=== PATIENT | female | born 1995 | race Caucasian/White ===

== ENCOUNTER 2018-11-18 16:46 | Emergency (ER) | payer BC ==
[2018-11-18 17:19] VITALS: RESP 18; TEMP 98.2
[2018-11-18] MEDS ORDERED: KETOROLAC 60 MG/2 ML VIAL IM STA (19:20)
--- NOTE | 2018-11-18 19:24 | ED ---
Chest Pain HPI - General Chief Complaint: Chest Pain Stated Complaint: chest pain Time Seen by Provider: 11/18/18 19:01 Source: patient Mode of arrival: ambulatory Limitations: no limitations - History of Present Illness Initial Comments: This 23-year-old white female presents with a complaint of some pain in her chest. She states that this is primarily into the midsternal region. It is been present over the last 2 days. She denies any shortness of breath. She denies any injuries. It is worse with palpation. She states that it is slightly worse at the end of a deep inspiration. She further relates that she had some cramping in her right anterior proximal leg couple of days ago. She states that she has been on control pills and is worried about a blood clot. She denies any calf pain or swelling. She states that she is not very active overall. She denies any cough or fevers. She denies any known previous lung or cardiac problems. There's been no history of any blood clots. No other complaints or modifying factors. - Related Data Home Medications Medication Instructions Recorded Confirmed Norethindrone-E.estradiol-Iron 1 tab PO DAILY 11/18/18 11/18/18 [Junel Fe 1 mg-20 Mcg Tablet] Allergies Allergy/AdvReac Type Severity Reaction Status Date / Time amoxicillin Allergy Rash/Hives Verified 11/18/18 19:34 lamotrigine [From Lamictal] AdvReac Confusion Verified 11/18/18 19:34 progesterone AdvReac Nausea & Verified 11/18/18 19:34 Vomiting Review of Systems ROS Statement: Those systems with pertinent positive or pertinent negative responses have been documented in the HPI. ROS Other: All systems not noted in ROS Statement are negative. Past Medical History Additional Past Medical History / Comment(s): endometriosis, ovarian cysts History of Any Multi-Drug Resistant Organisms: None Reported Past Surgical History: Appendectomy, Ear Surgery, Tonsillectomy Additional Past Surgical History / Comment(s): ear tubes Past Psychological History: No Psychological Hx Reported Smoking Status: Never smoker Past Alcohol Use History: None Reported Past Drug Use History: None Reported General Exam - General Exam Comments Initial Comments: GENERAL: The patient is well nourished and well hydrated. VITAL SIGNS: Heart rate, blood pressure, respiratory rate reviewed as recorded in nurse's notes. EYES: Pupils are round and reactive. Extraocular movements are intact. No conjunctival / lid redness or swelling. ENT: No external evidence of injury, swelling, or ecchymosis. Airway is patent. Throat is clear. NECK: Nontender. No swelling or evidence of injury. No subcutaneous emphysema. Trachea is midline. No thyroid mass. HEART: Regular rate and rhythm. Good peripheral pulses. LUNGS/CHEST: Breath sounds clear and equal bilaterally. No rales, rhonchi, or wheezes. No ecchymosis, subcutaneous emphysema. There is some mild tenderness upon palpation of the anterior chest wall. ABDOMEN: Abdomen soft without tenderness. No palpable masses or organomegaly. No peritoneal signs. No abdominal wall swelling or ecchymosis. EXTREMITIES: No extremity tenderness currently. Normal muscle tone and function. No thoracolumbar tenderness. NEUROLOGIC: Sensation is grossly intact. Cranial nerve exam reveals face is symmetrical, tongue is midline, speech is clear. SKIN: No abrasions or ecchymosis is noted. No induration or masses noted. PSYCHIATRIC: Alert and oriented. Appropriate behavior and judgment. Limitations: no limitations Course Vital Signs 11/18/18 17:17 Temperature 98.2 F Pulse Rate 83 Respiratory 18 Rate Blood Pressure 132/84 O2 Sat by Pulse 99 Oximetry Chest Pain [facility] The patient was seen and examined. All diagnostics are reviewed. The patient did receive 30 of Toradol intravenously with some moderate relief of the pain. The EKG shows a normal sinus rhythm at a rate of 80. There is no acute ST-T wave changes identified. The NH interval is 152, QRS duration is 82, and the QTC intervals 419. The patient had a chest x-ray which did not show any acute abnormalities. The laboratory including a d-dimer is negative for any evidence of pulmonary embolism. Overall, it is felt as though she likely does have some musculoskeletal chest pain. That she is very tender upon palpation of her chest wall anteriorly. It is felt as though she is stable for discharge home and leaves in no distress. Disposition Clinical Impression: Chest wall pain Disposition: HOME SELF-CARE Condition: Good Additional Instructions: Please take tylenol and/or motrin if needed for pain. Is patient prescribed a controlled substance at d/c from ED?: No Referrals: Jesenia Madison MD [Primary Care Provider] - 1-2 days Time of Disposition: 20:50
[2018-11-18 19:58] LABS: Basophils # (A) 0.1 k/uL (0-0.2); Basophils % (A) 1 %; Eosinophils # (A) 0.1 k/uL (0-0.7); Eosinophils % (A) 2 %; HCT 37.5 % (34.0-46.0); HGB 12.7 gm/dL (11.4-16.0); Lymphocytes # (A) 2.4 k/uL (1.0-4.8); Lymphocytes % (A) 29 %; MCHC 33.8 g/dL (31.0-37.0); MCV 79.9 fL (80.0-100.0); Monocytes # (A) 0.4 k/uL (0-1.0); Monocytes % (A) 5 %; Neutrophils # (A) 5.1 k/uL (1.3-7.7); Neutrophils % (A) 63 %; Platelet Count 321 k/uL (150-450); RBC 4.69 m/uL (3.80-5.40); RDW 12.4 % (11.5-15.5); WBC 8.1 k/uL (3.8-10.6)
[2018-11-18] MEDS ORDERED: KETOROLAC 30 MG/ML 1 ML VIAL IVP STA (20:07)
[2018-11-18 20:27] LABS: ALT 33 U/L (9-52); AST 26 U/L (14-36); Albumin 4.3 g/dL (3.5-5.0); Alkaline Phosphatase 57 U/L (38-126); Anion Gap 7 mmol/L; Blood Urea Nitrogen 8 mg/dL (7-17); Calcium 9.8 mg/dL (8.4-10.2); Carbon Dioxide 25 mmol/L (22-30); Chloride 106 mmol/L (98-107); Glucose 129 mg/dL (74-99); Potassium 4.4 mmol/L (3.5-5.1); Sodium 138 mmol/L (137-145); Total Bilirubin 0.3 mg/dL (0.2-1.3); Total Protein 7.4 g/dL (6.3-8.2)
--- NOTE | 2018-11-18 20:37 | XR ---
EXAMINATION: XR chest 2V DATE AND TIME: 11/18/2018 8:31 PM CLINICAL INDICATION: PH[facility]; Chest Pain TECHNIQUE: Departmental protocol COMPARISON: None FINDINGS: The overlying soft tissues are prominent. Lungs are clear. The pleural spaces are negative. The cardiac silhouette is not enlarged. The remainder of the mediastinal silhouette is unremarkable. The skeletal structures and soft tissues are negative for acute findings. IMPRESSION: NO ACUTE PROCESS.
--- NOTE | 2018-11-18 20:52 | ED ---
Medical Decision Making - Lab Data Result diagrams: 11/18/18 19:25 11/18/18 19:25 Lab Results 11/18/18 11/18/18 11/18/18 Range/Units 19:25 19:25 19:25 WBC 8.1 (3.8-10.6) k/uL RBC 4.69 (3.80-5.40) m/uL Hgb 12.7 (11.4-16.0) gm/dL Hct 37.5 (34.0-46.0) % MCV 79.9 L (80.0-100.0) fL MCH 27.0 (25.0-35.0) pg MCHC 33.8 (31.0-37.0) g/dL RDW 12.4 (11.5-15.5) % Plt Count 321 (150-450) k/uL Neutrophils % 63 % Lymphocytes % 29 % Monocytes % 5 % Eosinophils % 2 % Basophils % 1 % Neutrophils # 5.1 (1.3-7.7) k/uL Lymphocytes # 2.4 (1.0-4.8) k/uL Monocytes # 0.4 (0-1.0) k/uL Eosinophils # 0.1 (0-0.7) k/uL Basophils # 0.1 (0-0.2) k/uL D-Dimer 0.25 (<0.60) mg/L FEU Sodium 138 (137-145) mmol/L Potassium 4.4 (3.5-5.1) mmol/L Chloride 106 (98-107) mmol/L Carbon Dioxide 25 (22-30) mmol/L Anion Gap 7 mmol/L BUN 8 (7-17) mg/dL Creatinine 0.69 (0.52-1.04) mg/dL Est GFR (CKD-EPI)AfAm >90 (>60 ml/min/1.73 sqM) Est GFR (CKD-EPI)NonAf >90 (>60 ml/min/1.73 sqM) Glucose 129 H (74-99) mg/dL Calcium 9.8 (8.4-10.2) mg/dL Total Bilirubin 0.3 (0.2-1.3) mg/dL AST 26 (14-36) U/L ALT 33 (9-52) U/L Alkaline Phosphatase 57 (38-126) U/L Total Protein 7.4 (6.3-8.2) g/dL Albumin 4.3 (3.5-5.0) g/dL Urine HCG, Qual (Not Detectd) 11/18/18 Range/Units 19:55 WBC (3.8-10.6) k/uL RBC (3.80-5.40) m/uL Hgb (11.4-16.0) gm/dL Hct (34.0-46.0) % MCV (80.0-100.0) fL MCH (25.0-35.0) pg MCHC (31.0-37.0) g/dL RDW (11.5-15.5) % Plt Count (150-450) k/uL Neutrophils % % Lymphocytes % % Monocytes % % Eosinophils % % Basophils % % Neutrophils # (1.3-7.7) k/uL Lymphocytes # (1.0-4.8) k/uL Monocytes # (0-1.0) k/uL Eosinophils # (0-0.7) k/uL Basophils # (0-0.2) k/uL D-Dimer (<0.60) mg/L FEU Sodium (137-145) mmol/L Potassium (3.5-5.1) mmol/L Chloride (98-107) mmol/L Carbon Dioxide (22-30) mmol/L Anion Gap mmol/L BUN (7-17) mg/dL Creatinine (0.52-1.04) mg/dL Est GFR (CKD-EPI)AfAm (>60 ml/min/1.73 sqM) Est GFR (CKD-EPI)NonAf (>60 ml/min/1.73 sqM) Glucose (74-99) mg/dL Calcium (8.4-10.2) mg/dL Total Bilirubin (0.2-1.3) mg/dL AST (14-36) U/L ALT (9-52) U/L Alkaline Phosphatase (38-126) U/L Total Protein (6.3-8.2) g/dL Albumin (3.5-5.0) g/dL Urine HCG, Qual Not Detected (Not Detectd) Disposition Clinical Impression: Chest wall pain Disposition: HOME SELF-CARE Condition: Good Instructions (If sedation given, give patient instructions): Chest Wall Pain ( ED) Additional Instructions: Please take tylenol and/or motrin if needed for pain. Is patient prescribed a controlled substance at d/c from ED?: No Referrals: Jesenia Madison MD [Primary Care Provider] - 1-2 days Time of Disposition: 20:51
[2018-11-18 21:15] VITALS: BP 110/53; PULSE 65
== END 2018-11-18 21:04 | disposition home or self-care (01) ==
LOC: EC 16:46
DX: R07.89 Other chest pain (principal); Z53.8 Procedure and treatment not carried out for other reasons; Z79.3 Long term (current) use of hormonal contraceptives; Z88.0 Allergy status to penicillin; Z88.8 Allergy status to other drugs, medicaments and biological substances
CPT/HCPCS: 36415; 93005; 85379; 80053; 85025; 81025; 71046; 99285; 96374; J1885

== ENCOUNTER 2021-09-30 11:53 | Emergency (ER) | payer BC ==
[2021-09-30 12:09] VITALS: TEMP 98.3
--- NOTE | 2021-09-30 12:52 | ED ---
General Adult HPI - General Chief complaint: Vaginal Bleeding Stated complaint: 6 wks preg/Bleeding Time Seen by Provider: 09/30/21 12:28 Source: patient, RN notes reviewed Mode of arrival: ambulatory - History of Present Illness Initial comments: 26-year-old female presents to the emergency Department with concerns about vaginal bleeding and early . Patient states this is her first and is high risk due to a history of endometriosis. States she spoke with her GREEN HIDE INSPECTOR this morning and they were willing to see her in the office on Saturday, however patient has exams and is very concerned about this bleeding therefore she came to the emergency department. Describes the bleeding as pinkish-brown and the consistency of a vaginal discharge. States she had a transvaginal ultrasound for scan on Saturday and this is the first episode of bleeding since. Denies any clots or bright red bleeding; no pain or cramping; denies dysuria. Last menstrual period on 08/16/2021. - Related Data Home Medications Medication Instructions Recorded Confirmed Pnv,Calcium 72/Iron/Folic Acid 1 tab PO DAILY 09/30/21 09/30/21 [ Plus Tablet] Allergies Allergy/AdvReac Type Severity Reaction Status Date / Time amoxicillin Allergy Rash/Hives Verified 09/30/21 14:12 lamotrigine [From Lamictal] AdvReac Confusion Verified 09/30/21 14:12 progesterone AdvReac Nausea & Verified 09/30/21 14:12 Vomiting Review of Systems ROS Statement: Those systems with pertinent positive or pertinent negative responses have been documented in the HPI. ROS Other: All systems not noted in ROS Statement are negative. Past Medical History Additional Past Medical History / Comment(s): endometriosis, ovarian cysts History of Any Multi-Drug Resistant Organisms: None Reported Past Surgical History: Appendectomy, Ear Surgery, Tonsillectomy Additional Past Surgical History / Comment(s): ear tubes Past Psychological History: Bipolar Past Alcohol Use History: None Reported Past Drug Use History: None Reported General Exam Limitations: no limitations (Well-developed, well-nourished female in no acute distress. Initial temperature 98.3, pulse 79, respirations 18, blood pressure 109/75, pulse ox 100% on room air.) General appearance: alert, in no apparent distress ENT exam: Present: normal exam, normal oropharynx, mucous membranes moist Respiratory exam: Present: normal lung sounds bilaterally. Absent: respiratory distress, wheezes, rales, rhonchi, stridor Cardiovascular Exam: Present: regular rate, normal rhythm, normal heart sounds. Absent: systolic murmur, diastolic murmur, rubs, gallop, clicks GI/Abdominal exam: Present: soft, normal bowel sounds. Absent: distended, tenderness, guarding, rebound, rigid External exam: Present: normal external exam Speculum exam: Present: vaginal discharge (Scant amount of brownish pink vaginal discharge observed), other (Cervical os appears closed.) Neurological exam: Present: alert, oriented X3, CN II-XII intact Psychiatric exam: Present: normal affect, normal mood Skin exam: Present: warm, dry, intact, normal color. Absent: rash Course Vital Signs 09/30/21 09/30/21 12:05 15:32 Temperature 98.3 F Pulse Rate 79 78 Respiratory 18 17 Rate Blood Pressure 109/75 111/64 O2 Sat by Pulse 100 100 Oximetry Medical Decision Making - Medical Decision Making 26-year-old female with a history of endometriosis presents to the emergency department for evaluation of vaginal bleeding during early . She is . LMP 08/16/2021. Patient sees a highway safety engineer provider due to her history of endometriosis. She contacted the on-call provider after her bleeding began today and they are willing to see her in the office on Saturday. However patient states she has final exams on Saturday and is unable to wait until then therefore came to the emergency department for evaluation. Upon exam, patient is well- appearing and in no acute distress. Abdomen is soft and nontender. No cramping. Patient does have scant amount of brownish pink vaginal discharge. Cervical os is closed. Laboratory studies were obtained and are unremarkable. HCG is elevated as expected. Ultrasound confirms presence of early single intrauterine . Patient was informed of these findings. Instructed to refrain from sexual intercourse and exertional activity until she is seen by her OB provider. Return parameters were discussed in detail. Patient verbalizes understanding and agrees with this plan. - Lab Data Result diagrams: 09/30/21 13:09/30/21 13: Lab Results 09/30/21 09/30/21 09/30/21 Range/Units 13: 13: 13: WBC 5.8 (3.8-10.6) k/uL RBC 4.40 (3.80-5.40) m/uL Hgb 13.0 (11.4-16.0) gm/dL Hct 38.0 (34.0-46.0) % MCV 86.4 (80.0-100.0) fL MCH 29.5 (25.0-35.0) pg MCHC 34.2 (31.0-37.0) g/dL RDW 12.2 (11.5-15.5) % Plt Count 271 (150-450) k/uL MPV 6.7 Neutrophils % 64 % Lymphocytes % 27 % Monocytes % 6 % Eosinophils % 1 % Basophils % 1 % Neutrophils # 3.7 (1.3-7.7) k/uL Lymphocytes # 1.6 (1.0-4.8) k/uL Monocytes # 0.4 (0-1.0) k/uL Eosinophils # 0.1 (0-0.7) k/uL Basophils # 0.1 (0-0.2) k/uL Sodium 137 (137-145) mmol/L Potassium 4.4 (3.5-5.1) mmol/L Chloride 104 (98-107) mmol/L Carbon Dioxide 24 (22-30) mmol/L Anion Gap 9 mmol/L BUN 9 (7-17) mg/dL Creatinine 0.66 (0.52-1.04) mg/dL Est GFR (CKD-EPI)AfAm >90 (>60 ml/min/1.73 sqM) Est GFR (CKD-EPI)NonAf >90 (>60 ml/min/1.73 sqM) Glucose 88 (74-99) mg/dL Calcium 9.1 (8.4-10.2) mg/dL HCG, Quant 77787.7 mIU/mL Urine Color Yellow Urine Appearance Clear (Clear) Urine pH 6.5 (5.0-8.0) Ur Specific [place] 1.020 (1.001-1.035) Urine Protein Negative (Negative) Urine Glucose (UA) Negative (Negative) Urine Ketones Negative (Negative) Urine Blood Negative (Negative) Urine Nitrite Negative (Negative) Urine Bilirubin Negative (Negative) Urine Urobilinogen <2.0 (<2.0) mg/dL Ur Leukocyte Esterase Negative (Negative) Blood Type Blood Type Recheck Bld Type Recheck Status 09/30/21 Range/Units 13:01 WBC (3.8-10.6) k/uL RBC (3.80-5.40) m/uL Hgb (11.4-16.0) gm/dL Hct (34.0-46.0) % MCV (80.0-100.0) fL MCH (25.0-35.0) pg MCHC (31.0-37.0) g/dL RDW (11.5-15.5) % Plt Count (150-450) k/uL MPV Neutrophils % % Lymphocytes % % Monocytes % % Eosinophils % % Basophils % % Neutrophils # (1.3-7.7) k/uL Lymphocytes # (1.0-4.8) k/uL Monocytes # (0-1.0) k/uL Eosinophils # (0-0.7) k/uL Basophils # (0-0.2) k/uL Sodium (137-145) mmol/L Potassium (3.5-5.1) mmol/L Chloride (98-107) mmol/L Carbon Dioxide (22-30) mmol/L Anion Gap mmol/L BUN (7-17) mg/dL Creatinine (0.52-1.04) mg/dL Est GFR (CKD-EPI)AfAm (>60 ml/min/1.73 sqM) Est GFR (CKD-EPI)NonAf (>60 ml/min/1.73 sqM) Glucose (74-99) mg/dL Calcium (8.4-10.2) mg/dL HCG, Quant mIU/mL Urine Color Urine Appearance (Clear) Urine pH (5.0-8.0) Ur Specific [place] (1.001-1.035) Urine Protein (Negative) Urine Glucose (UA) (Negative) Urine Ketones (Negative) Urine Blood (Negative) Urine Nitrite (Negative) Urine Bilirubin (Negative) Urine Urobilinogen (<2.0) mg/dL Ur Leukocyte Esterase (Negative) Blood Type O Positive Blood Type Recheck No Previous Record Bld Type Recheck Status [facility] ONLY - Radiology Data Radiology results: report reviewed, image reviewed ultrasound was obtained. Report was reviewed in its entirety. Impression per Dr. Garrison is early single intrauterine . heart rate is not detected likely secondary to early gestational age. No definite abnormality. Disposition Clinical Impression: Threatened , Bleeding in early Disposition: HOME SELF-CARE Condition: Stable Instructions (If sedation given, give patient instructions): Threatened Miscarriage (ED) Additional Instructions: Call your OB to schedule a follow-up appointment on Saturday. hCG 14,670. Avoid sexual intercourse and exertional activity. Return to the emergency department with any new, worsening, or concerning symptoms. Is patient prescribed a controlled substance at d/c from ED?: No Referrals: Jesenia Madison MD [Primary Care Provider] - 1-2 days Time of Disposition: 15:22
[2021-09-30 13:16] LABS: Basophils # (A) 0.1 k/uL (0-0.2); Basophils % (A) 1 %; Eosinophils # (A) 0.1 k/uL (0-0.7); Eosinophils % (A) 1 %; Lymphocytes # (A) 1.6 k/uL (1.0-4.8); Lymphocytes % (A) 27 %; MCH 29.5 pg (25.0-35.0); MCHC 34.2 g/dL (31.0-37.0); MCV 86.4 fL (80.0-100.0); Mean Platelet Volume 6.7; Monocytes # (A) 0.4 k/uL (0-1.0); Monocytes % (A) 6 %; Neutrophils # (A) 3.7 k/uL (1.3-7.7); Neutrophils % (A) 64 %; Platelet Count 271 k/uL (150-450); RDW 12.2 % (11.5-15.5); WBC 5.8 k/uL (3.8-10.6)
[2021-09-30 13:22] LABS: Appearance,Urine Clear (Clear); Bilirubin,Urine Negative (Negative); Blood,Urine Negative (Negative); Color,Urine Yellow; Glucose,Urine (UA) Negative (Negative); Ketones,Urine Negative (Negative); Leukocyte Esterase,Urine Negative (Negative); Nitrite,Urine Negative (Negative); PH, Urine 6.5 (5.0-8.0); Protein,Urine Negative (Negative); Urobilinogen,Urine <2.0 mg/dL (<2.0)
[2021-09-30 13:37] LABS: African American GFR (CKD) >90 (>60 ml/min/1.73 sqM); Anion Gap 9 mmol/L; Blood Urea Nitrogen 9 mg/dL (7-17); Calcium 9.1 mg/dL (8.4-10.2); Carbon Dioxide 24 mmol/L (22-30); Chloride 104 mmol/L (98-107); Glucose 88 mg/dL (74-99); Non-African American GFR(CKD) >90 (>60 ml/min/1.73 sqM); Potassium 4.4 mmol/L (3.5-5.1); Sodium 137 mmol/L (137-145)
--- NOTE | 2021-09-30 14:13 | US ---
EXAMINATION TYPE: Transabdominal OB US 1st trimester DATE OF EXAM: 09/30/2021 1:43 PM COMPARISON: NONE CLINICAL HISTORY: LMP 08/16/21; vaginal bleeding in . EC patient with vaginal spotting noted today after intercourse; ; surgery for endometriosis April 2021. Patient stated had early pregnan cy US this Saturday at [facility] for High Risk due to endometriosis diagnosis: gestational sa c and yolk sac was seen per patient. EXAM PERFORMED: Transabdominal (TA) EXAM MEASUREMENTS: GESTATIONAL AGE / DATING Physician Established: (6 weeks/3 days) EDC: 05/23/2022 Dates by LMP: (6 weeks/3 days) EDC: 05/23/2022 Dates by First Scan: this is first scan here at [facility]. Dates by Current Scan for: ( 6 weeks/0 days) EDC: 05/26/2022 MATERNAL ANATOMY Uterus: 8.5 x 5.6 x 4.8cm Right Ovary: 3.0 x 1.9 x 1.7cm Left Ovary: 2.8 x 2.2 x 2.3cm Post CDS / Adnexa: wnl Presence of free fluid: no Presence of corpus luteal cyst: in left ovary = 1.3 x 1.7 x 1.5cm Presence of subchorionic bleed: no GESTATION / SURVEY CRL: 0.37cm (6 weeks/0 days) Yolk Sac (normal less than 6mm): 3.4mm Heart Rate: early IUP and no color flow is noted in pole yet as CRL is less than average CRL ne eded for cardiac activity (0.5cm CRL) IUP: early single IUP Date of LMP: 08/16/2021 Beta HcG (if available): Not assessed today Early gestation with single IUP noted with gestational sac in good location at upper uterus; presence of yolk sac and early pole noted within gestational sac. IMPRESSION: Early single intrauterine . heart rate is not detected likely secondary to early gesta tional age. No definite abnormality.
[2021-09-30 14:26] LABS: HCG,Quantitative Serum 14670.7 mIU/mL
[2021-09-30 15:37] VITALS: BP 111/64; PULSE 78; RESP 17
== END 2021-09-30 15:37 | disposition home or self-care (01) ==
LOC: EC 11:53
DX: O20.0 Threatened abortion (principal); F31.9 Bipolar disorder, unspecified; Z3A.01 Less than 8 weeks gestation of pregnancy; Z90.49 Acquired absence of other specified parts of digestive tract
CPT/HCPCS: 36415; 76801; 80048; 81003; 84702; 85025; 86900; 86901; 99284

== ENCOUNTER 2022-05-21 10:35 | Emergency (ER) | payer BC ==
[2022-05-21 10:40] VITALS: TEMP 97.7
[2022-05-21] MEDS ORDERED: KETOROLAC 15 MG/ML 1 ML VIAL IVP STA (10:52)
[2022-05-21] MEDS ORDERED: SODIUM CHLORIDE 0.9% 1,000 ML IV STA (10:52)
[2022-05-21] MEDS ORDERED: ONDANSETRON ODT 4 MG TAB PO STA (10:52)
[2022-05-21 11:12] LABS: Basophils % (A) 0 %; Eosinophils # (A) 0.2 k/uL (0-0.7); Eosinophils % (A) 2 %; HCT 34.3 % (34.0-46.0); HGB 11.3 gm/dL (11.4-16.0); Lymphocytes # (A) 1.2 k/uL (1.0-4.8); Lymphocytes % (A) 13 %; MCH 27.3 pg (25.0-35.0); MCHC 32.9 g/dL (31.0-37.0); MCV 82.9 fL (80.0-100.0); Mean Platelet Volume 8.9; Monocytes # (A) 0.4 k/uL (0-1.0); Monocytes % (A) 5 %; Neutrophils # (A) 7.3 k/uL (1.3-7.7); Neutrophils % (A) 79 %; Platelet Count 208 k/uL (150-450); RBC 4.13 m/uL (3.80-5.40); RDW 14.5 % (11.5-15.5); WBC 9.1 k/uL (3.8-10.6)
--- NOTE | 2022-05-21 11:15 | ED ---
Back Pain HPI - General Chief Complaint: Back Pain/Injury Stated Complaint: lower back pain Time Seen by Provider: 05/21/22 10:40 Source: patient Limitations: no limitations - History of Present Illness Initial Comments: Patient is a 26-year-old female presenting with chief complaint of left flank pain. Patient gave via vaginal delivery 3 days ago on 05/18, this was her first delivery. Her OB is Dr. Jacques. Patient states that last night she developed left-sided flank pain, she states when she woke up this morning she had some nausea due to the pain. She denies any fever, chills, vomiting, palpitations, weakness, chest pain, shortness of breath. She denies any heavy vaginal bleeding or malodorous/foul vaginal discharge. She denies any upper abdominal pain. - Related Data Home Medications Medication Instructions Recorded Confirmed Vit No.180/Iron/Folic 1 tab PO DAILY 09/30/21 09/30/21 [ Plus Tablet] Allergies Allergy/AdvReac Type Severity Reaction Status Date / Time amoxicillin Allergy Rash/Hives Verified 05/21/22 10:39 lamotrigine [From Lamictal] AdvReac Confusion Verified 05/21/22 10:39 progesterone AdvReac Nausea & Verified 05/21/22 10:39 Vomiting Review of Systems ROS Statement: Those systems with pertinent positive or pertinent negative responses have been documented in the HPI. ROS Other: All systems not noted in ROS Statement are negative. Past Medical History Additional Past Medical History / Comment(s): endometriosis, ovarian cysts, History of Any Multi-Drug Resistant Organisms: None Reported Past Surgical History: Appendectomy, Ear Surgery, Tonsillectomy Additional Past Surgical History / Comment(s): ear tubes Past Psychological History: Bipolar Smoking Status: Never smoker Past Alcohol Use History: None Reported Past Drug Use History: None Reported General Exam Limitations: no limitations General appearance: alert, in no apparent distress Head exam: Present: atraumatic, normocephalic, normal inspection Eye exam: Present: normal appearance, EOMI. Absent: scleral icterus, periorbital swelling Neck exam: Present: normal inspection Respiratory exam: Present: normal lung sounds bilaterally. Absent: respiratory distress, wheezes, rales, rhonchi, stridor Cardiovascular Exam: Present: regular rate, normal rhythm, normal heart sounds. Absent: systolic murmur, diastolic murmur, rubs, gallop, clicks GI/Abdominal exam: Present: soft. Absent: distended, tenderness, guarding, rebound, rigid Back exam: Present: normal inspection, full ROM, paraspinal tenderness. Absent: CVA tenderness (R), CVA tenderness (L), vertebral tenderness Neurological exam: Present: alert, oriented X3, CN II-XII intact Psychiatric exam: Present: normal affect, normal mood Skin exam: Present: warm, dry, intact, normal color. Absent: rash Course Vital Signs 05/21/22 05/21/22 05/21/22 10:37 12:02 12:56 Temperature 97.7 F Pulse Rate 77 72 74 Respiratory 20 18 18 Rate Blood Pressure 156/94 122/72 132/65 O2 Sat by Pulse 98 98 99 Oximetry Blood pressure taken in triage was taken on her forearm, I rechecked this blood pressure on my examination, 122/72 taken on the left upper arm. Medical Decision Making - Medical Decision Making Patient is a 26-year-old female presenting with chief complaint of left flank pain. Pain started last night. Patient gave vaginally on Saturday, 3 days ago. She denies any heavy vaginal bleeding, foul vaginal discharge, fever, chills. Patient is afebrile. On examination there is no CVA tenderness, some left-sided paraspinal muscle tenderness on palpation, patient reports change in pain with different positions. No leukocytosis. Urine shows no signs of infection. Ultrasound is shows no evidence of obstructive uropathy. Likely mechanical back pain. Patient is educated on supportive treatment. Instructed to follow-up with her PCP and PHOTOGRAPH RETOUCHER. Report back to ER if any new or worsening symptoms. Discussed return parameters answered all questions. Patient conveyed verbal understanding and agreed to the plan. I discussed this case with my attending Dr. Hernandez. - Lab Data Result diagrams: 05/21/22 11:05 05/21/22 11:05 Lab Results 05/21/22 05/21/22 05/21/22 Range/Units 11:05 11:05 11:05 WBC 9.1 (3.8-10.6) k/uL RBC 4.13 (3.80-5.40) m/uL Hgb 11.3 L (11.4-16.0) gm/dL Hct 34.3 (34.0-46.0) % MCV 82.9 (80.0-100.0) fL MCH 27.3 (25.0-35.0) pg MCHC 32.9 (31.0-37.0) g/dL RDW 14.5 (11.5-15.5) % Plt Count 208 (150-450) k/uL MPV 8.9 Neutrophils % 79 % Lymphocytes % 13 % Monocytes % 5 % Eosinophils % 2 % Basophils % 0 % Neutrophils # 7.3 (1.3-7.7) k/uL Lymphocytes # 1.2 (1.0-4.8) k/uL Monocytes # 0.4 (0-1.0) k/uL Eosinophils # 0.2 (0-0.7) k/uL Basophils # 0.0 (0-0.2) k/uL Sodium 138 (137-145) mmol/L Potassium 4.2 (3.5-5.1) mmol/L Chloride 109 H (98-107) mmol/L Carbon Dioxide 23 (22-30) mmol/L Anion Gap 6 mmol/L BUN 5 L (7-17) mg/dL Creatinine 0.63 (0.52-1.04) mg/dL Est GFR (CKD-EPI)AfAm >90 (>60 ml/min/1.73 sqM) Est GFR (CKD-EPI)NonAf >90 (>60 ml/min/1.73 sqM) Glucose 103 H (74-99) mg/dL Plasma Lactic Acid Nabil 0.6 L (0.7-2.0) mmol/L Calcium 8.2 L (8.4-10.2) mg/dL Total Bilirubin 0.1 L (0.2-1.3) mg/dL AST 36 (14-36) U/L ALT 18 (4-34) U/L Alkaline Phosphatase 160 H (38-126) U/L Total Protein 5.8 L (6.3-8.2) g/dL Albumin 3.0 L (3.5-5.0) g/dL Urine Color Urine Appearance (Clear) Urine pH (5.0-8.0) Ur Specific [place] (1.001-1.035) Urine Protein (Negative) Urine Glucose (UA) (Negative) Urine Ketones (Negative) Urine Blood (Negative) Urine Nitrite (Negative) Urine Bilirubin (Negative) Urine Urobilinogen (<2.0) mg/dL Ur Leukocyte Esterase (Negative) 05/21/22 Range/Units 11:45 WBC (3.8-10.6) k/uL RBC (3.80-5.40) m/uL Hgb (11.4-16.0) gm/dL Hct (34.0-46.0) % MCV (80.0-100.0) fL MCH (25.0-35.0) pg MCHC (31.0-37.0) g/dL RDW (11.5-15.5) % Plt Count (150-450) k/uL MPV Neutrophils % % Lymphocytes % % Monocytes % % Eosinophils % % Basophils % % Neutrophils # (1.3-7.7) k/uL Lymphocytes # (1.0-4.8) k/uL Monocytes # (0-1.0) k/uL Eosinophils # (0-0.7) k/uL Basophils # (0-0.2) k/uL Sodium (137-145) mmol/L Potassium (3.5-5.1) mmol/L Chloride (98-107) mmol/L Carbon Dioxide (22-30) mmol/L Anion Gap mmol/L BUN (7-17) mg/dL Creatinine (0.52-1.04) mg/dL Est GFR (CKD-EPI)AfAm (>60 ml/min/1.73 sqM) Est GFR (CKD-EPI)NonAf (>60 ml/min/1.73 sqM) Glucose (74-99) mg/dL Plasma Lactic Acid Nabil (0.7-2.0) mmol/L Calcium (8.4-10.2) mg/dL Total Bilirubin (0.2-1.3) mg/dL AST (14-36) U/L ALT (4-34) U/L Alkaline Phosphatase (38-126) U/L Total Protein (6.3-8.2) g/dL Albumin (3.5-5.0) g/dL Urine Color Yellow Urine Appearance Clear (Clear) Urine pH 7.0 (5.0-8.0) Ur Specific [place] 1.015 (1.001-1.035) Urine Protein Negative (Negative) Urine Glucose (UA) Negative (Negative) Urine Ketones Negative (Negative) Urine Blood Negative (Negative) Urine Nitrite Negative (Negative) Urine Bilirubin Negative (Negative) Urine Urobilinogen <2.0 (<2.0) mg/dL Ur Leukocyte Esterase Negative (Negative) Disposition Clinical Impression: Mechanical back pain Disposition: HOME SELF-CARE Condition: Good Instructions (If sedation given, give patient instructions): Back Pain (ED) Additional Instructions: Follow-up with your PCP and PHOTOGRAPH RETOUCHER in one to 2 days. Report back to ER if any new or worsening symptoms. Take Motrin and Tylenol as needed for pain control. Rest, and heat or ice may be helpful in alleviating symptoms. Is patient prescribed a controlled substance at d/c from ED?: No Referrals: Jesenia Madison MD [Primary Care Provider] - 1-2 days Time of Disposition: 12:47
[2022-05-21 11:23] LABS: ALT 18 U/L (4-34); AST 36 U/L (14-36); African American GFR (CKD) >90 (>60 ml/min/1.73 sqM); Alkaline Phosphatase 160 U/L (38-126); Anion Gap 6 mmol/L; Blood Urea Nitrogen 5 mg/dL (7-17); Calcium 8.2 mg/dL (8.4-10.2); Carbon Dioxide 23 mmol/L (22-30); Chloride 109 mmol/L (98-107); Glucose 103 mg/dL (74-99); Non-African American GFR(CKD) >90 (>60 ml/min/1.73 sqM); Potassium 4.2 mmol/L (3.5-5.1); Sodium 138 mmol/L (137-145); Total Bilirubin 0.1 mg/dL (0.2-1.3); Total Protein 5.8 g/dL (6.3-8.2)
[2022-05-21 12:01] LABS: Appearance,Urine Clear (Clear); Bilirubin,Urine Negative (Negative); Blood,Urine Negative (Negative); Color,Urine Yellow; Glucose,Urine (UA) Negative (Negative); Ketones,Urine Negative (Negative); Leukocyte Esterase,Urine Negative (Negative); Nitrite,Urine Negative (Negative); Protein,Urine Negative (Negative); Specific Gravity,Urine 1.015 (1.001-1.035); Urobilinogen,Urine <2.0 mg/dL (<2.0)
[2022-05-21 12:03] VITALS: RESP 18
--- NOTE | 2022-05-21 12:37 | US ---
EXAMINATION TYPE: US kidneys/renal and bladder DATE OF EXAM: 05/21/2022 COMPARISON: None available. CLINICAL HISTORY: L flank pain. Patient just recently delivered baby x 3 days ago. TECHNIQUE: Multiple grayscale color Doppler and power Doppler images of the kidneys and urinary bladd er were obtained. EXAM MEASUREMENTS: Right Kidney: 12.1 x 5.6 x 4.2 cm Left Kidney: 11.6 x 5.6 x 5.6 cm Right Kidney: No hydronephrosis or masses seen . No shadowing calculi. Left Kidney: No hydronephrosis or masses seen . No shadowing calculi. Bladder: anechoic, mildly distended Left jet seen IMPRESSION: No evidence of obstructive uropathy.
[2022-05-21 12:57] VITALS: BP 132/65; PULSE 74
== END 2022-05-21 12:57 | disposition home or self-care (01) ==
LOC: EC 10:35
DX: O90.89 Other complications of the puerperium, not elsewhere classified (principal); F31.9 Bipolar disorder, unspecified; Z88.0 Allergy status to penicillin; Z88.8 Allergy status to other drugs, medicaments and biological substances
CPT/HCPCS: 36415; 76770; 80053; 81003; 83605; 85025; 96360; 96361; 99284

== ENCOUNTER 2025-01-09 22:15 | Emergency (ER) | payer BC, OTHER ==
[2025-01-09 22:30] VITALS: TEMP 97.9
--- NOTE | 2025-01-09 23:22 | ED ---
General Adult HPI - General Chief complaint: Abdominal Pain Stated complaint: abd pain,vaginal bleeding Time Seen by Provider: 01/09/25 22:33 Source: EMS, RN notes reviewed Mode of arrival: EMS Limitations: no limitations - History of Present Illness Initial comments: 29-year-old female presents to the emergency department for evaluation of lower abdominal pain cramping. Patient states that this started around 6 PM today. She notes that it comes in waves. She states that it feels like contractions. History of endometriosis. Has had 2 surgeries for this. about 8 months ago. She admits to being on her menstrual cycle. She states that her bleeding has been heavier today. She is on Wegovy and on phentermine. - Related Data Home Medications Medication Instructions Recorded Confirmed Vit No.180/Iron/Folic 1 tab PO DAILY 09/30/21 09/30/21 [ Plus Tablet] Allergies Allergy/AdvReac Type Severity Reaction Status Date / Time amoxicillin Allergy Rash/Hives Verified 05/21/22 10:39 lamotrigine [From Lamictal] AdvReac Confusion Verified 05/21/22 10:39 progesterone AdvReac Nausea & Verified 05/21/22 10:39 Vomiting Review of Systems ROS Statement: Those systems with pertinent positive or pertinent negative responses have been documented in the HPI. ROS Other: All systems not noted in ROS Statement are negative. Past Medical History Additional Past Medical History / Comment(s): endometriosis, ovarian cysts, History of Any Multi-Drug Resistant Organisms: None Reported Past Surgical History: Appendectomy, Section, Ear Surgery, Tonsillectomy Additional Past Surgical History / Comment(s): ear tubes, may 2024 Past Psychological History: Bipolar Smoking Status: Never smoker Past Alcohol Use History: None Reported Past Drug Use History: None Reported General Exam Limitations: no limitations General appearance: alert, in no apparent distress Head exam: Present: atraumatic, normocephalic, normal inspection Eye exam: Present: normal appearance, PERRL, EOMI. Absent: scleral icterus, conjunctival injection, periorbital swelling ENT exam: Present: normal exam, mucous membranes moist Respiratory exam: Present: normal lung sounds bilaterally. Absent: respiratory distress, wheezes, rales, rhonchi, stridor Cardiovascular Exam: Present: regular rate, normal rhythm, normal heart sounds. Absent: systolic murmur, diastolic murmur, rubs, gallop, clicks GI/Abdominal exam: Present: soft, normal bowel sounds. Absent: distended, tenderness, guarding, rebound, rigid Extremities exam: Present: normal inspection, full ROM, normal capillary refill. Absent: tenderness, pedal edema, joint swelling, calf tenderness Neurological exam: Present: alert, oriented X3 Psychiatric exam: Present: normal affect, normal mood Skin exam: Present: warm, dry, intact, normal color. Absent: rash Course Vital Signs 01/09/25 01/10/25 22:25 03:28 Temperature 97.9 F Pulse Rate 96 78 Respiratory 20 16 Rate Blood Pressure 125/66 128/77 O2 Sat by Pulse 100 97 Oximetry Medical Decision Making - Medical Decision Making Was pt. sent in by a medical professional or institution ([facility], [facility], urgent care, hospital, or [facility]...) When possible be specific @ -No Did you speak to anyone other than the patient for history (EMS, parent, family, police, friend...)? What history was obtained from this source @ -No Did you review nursing and triage notes (agree or disagree)? Why? @ -I reviewed and agree with nursing and triage notes Were old charts reviewed (outside hosp., previous admission, EMS record, old EKG, old radiological studies, urgent care reports/EKG's, [facility] records)? Report findings @ -No old charts were reviewed Differential Diagnosis (chest pain, altered mental status, abdominal pain women, abdominal pain men, vaginal bleeding, weakness, fever, dyspnea, syncope, h eadache, dizziness, GI bleed, back pain, seizure, CVA, palpatations, mental health, musculoskeletal)? @ -Differential Abdominal Pain Women: Appendicitis, Cholecystitis, diverticulosis, ischemic bowel, pancreatitis, hepatitis, UTI, gastroenteritis, AAA, incarcerated hernia, bowel obstruction, constipation, inflammatory bowel, hepatitis, peptic ulcer disease, splenic infarction, perforated viscus, vulvitis, ovarian torsion, PID, kidney stone, placenta abruption, this is not meant to be an all-inclusive list EKG interpreted by me (3pts min.). @ -EKG [id number] shows sinus rhythm rate 66, FL 154, QRS 99, QT/QTc [id number] X-rays interpreted by me (1pt min.). @ -None done CT interpreted by me (1pt min.). @ -None done U/S interpreted by me (1pt. min.). @ -Transvaginal ultrasound was performed revealing 1.1 x 1 0.8 x 1.5 cm polyp or loculated fibroid within the endometrial cavity, normal Doppler flow to bilateral ovaries What testing was considered but not performed or refused? (CT, X-rays, U/S, labs)? Why? @ -None What meds were considered but not given or refused? Why? @ -None Did you discuss the management of the patient with other professionals (professionals i.e. , PA, [employer] INSTALLER, lab, RT, psych nurse, home health care social worker, corporation lawyer, teacher, air control/anti air warfare officer, case folder)? Give summary @ -No Was smoking cessation discussed for >3mins.? @ -No Was critical care preformed (if so, how long)? @ -No Were there social determinants of health that impacted care today? How? (Homelessness, low income, unemployed, alcoholism, drug addiction, transportation, low edu. Level, literacy, decrease access to med. care, long term, rehab)? @ -No Was there de-escalation of care discussed even if they declined (Discuss DNR or withdrawal of care, Hospice)? DNR status @ -No What co-morbidities impacted this encounter? (DM, HTN, Smoking, COPD, CAD, Cancer, CVA, ARF, Chemo, Hep., AIDS, mental health diagnosis, sleep apnea, morbid obesity)? @ -None Was patient admitted / discharged? Hospital course, mention meds given and route, prescriptions, significant lab abnormalities, going to OR and other pertinent info. @ -Discharge. Patient presented the emergency department for evaluation of abdominal cramping and vaginal bleeding. Laboratory studies obtainedHemoglobin 13.2, no significant leukocytosis; CMP on actionable, negative serum hCG. UA shows large blood, greater than 182 RBCs which is due to the patient's menstruation. Negative for COVID, influenza, RSV. Patient was provided fluid hydration in the emergency department. A pelvic ultrasound was obtained revealing a uterine fibroid but no acute process. Patient was provided medication for pain control in the emergency department. She is feeling better. She will be discharged home advised follow-up to her DEPENDENCY DIRECTOR. She is understanding agreeable with plan. Patient stable at time of discharge. Case discussed with Dr. Drew. Undiagnosed new problem with uncertain prognosis? @ -No Drug Therapy requiring intensive monitoring for toxicity (Heparin, Nitro, Insulin, Cardizem)? @ -No Were any procedures done? @ -No Diagnosis/symptom? @ -Uterine fibroid, abdominal pain Acute, or Chronic, or Acute on Chronic? @ -Acute Uncomplicated (without systemic symptoms) or Complicated (systemic symptoms)? @ -Uncomplicated Side effects of treatment? @ -No Exacerbation, Progression, or Severe Exacerbation? @ -No Poses a threat to life or bodily function? How? (Chest pain, [place], NH, pneumonia, PE, COPD, DKA, ARF, appy, cholecystitis, CVA, Diverticulitis, Homicidal, Suicidal, threat to staff... and all critical care pts) @ -No - Lab Data Result diagrams: 01/09/25 23:26 01/09/25 23:26 Lab Results 01/09/25 01/09/25 01/09/25 Range/Units 23:26 23:26 23:26 WBC 10.0 (3.8-10.6) k/uL RBC 4.75 (3.80-5.40) m/uL Hgb 13.2 (11.4-16.0) gm/dL Hct 39.0 (34.0-46.0) % MCV 82.2 (80.0-100.0) fL MCH 27.8 (25.0-35.0) pg MCHC 33.8 (31.0-37.0) g/dL RDW 13.2 (11.5-15.5) % Plt Count 254 (150-450) k/uL MPV 6.9 Neutrophils % 87 % Lymphocytes % 9 % Monocytes % 3 % Eosinophils % 0 % Basophils % 0 % Neutrophils # 8.7 H (1.3-7.7) k/uL Lymphocytes # 0.9 L (1.0-4.8) k/uL Monocytes # 0.3 (0-1.0) k/uL Eosinophils # 0.0 (0-0.7) k/uL Basophils # 0.0 (0-0.2) k/uL Sodium 137 (137-145) mmol/L Potassium 4.0 (3.5-5.1) mmol/L Chloride 104 (98-107) mmol/L Carbon Dioxide 21 L (22-30) mmol/L Anion Gap 12 mmol/L BUN 14 (7-17) mg/dL Creatinine 0.87 (0.52-1.04) mg/dL Est GFR (CKD-EPI)AfAm >90 (>60 ml/min/1.73 sqM) Est GFR (CKD-EPI)NonAf >90 (>60 ml/min/1.73 sqM) Glucose 102 H (74-99) mg/dL Calcium 10.3 H (8.4-10.2) mg/dL Total Bilirubin 0.6 (0.2-1.3) mg/dL AST 23 (14-36) U/L ALT 19 (4-34) U/L Alkaline Phosphatase 55 (38-126) U/L Total Protein 7.6 (6.3-8.2) g/dL Albumin 4.9 (3.5-5.0) g/dL Amylase 39 (30-110) U/L Lipase 135 (23-300) U/L HCG, Qual Not Detected Urine Color Urine Appearance (Clear) Urine pH (5.0-8.0) Ur Specific [place] (1.001-1.035) Urine Protein (Negative) Urine Glucose (UA) (Negative) Urine Ketones (Negative) Urine Blood (Negative) Urine Nitrite (Negative) Urine Bilirubin (Negative) Urine Urobilinogen (<2.0) mg/dL Ur Leukocyte Esterase (Negative) Urine RBC (0-5) /hpf Urine WBC (0-5) /hpf Ur Squamous Epith Cells (0-4) /hpf Urine Bacteria (None) /hpf Hyaline Casts (0-2) /lpf Urine Mucus (None) /hpf Urine Yeast (Budding) (None) /hpf Influenza Type A (PCR) (Not Detectd) Influenza Type B (PCR) (Not Detectd) RSV (PCR) (Not Detectd) SARS-CoV-2 (PCR) (Not Detectd) 01/10/25 01/10/25 Range/Units 00:14 01:57 WBC (3.8-10.6) k/uL RBC (3.80-5.40) m/uL Hgb (11.4-16.0) gm/dL Hct (34.0-46.0) % MCV (80.0-100.0) fL MCH (25.0-35.0) pg MCHC (31.0-37.0) g/dL RDW (11.5-15.5) % Plt Count (150-450) k/uL MPV Neutrophils % % Lymphocytes % % Monocytes % % Eosinophils % % Basophils % % Neutrophils # (1.3-7.7) k/uL Lymphocytes # (1.0-4.8) k/uL Monocytes # (0-1.0) k/uL Eosinophils # (0-0.7) k/uL Basophils # (0-0.2) k/uL Sodium (137-145) mmol/L Potassium (3.5-5.1) mmol/L Chloride (98-107) mmol/L Carbon Dioxide (22-30) mmol/L Anion Gap mmol/L BUN (7-17) mg/dL Creatinine (0.52-1.04) mg/dL Est GFR (CKD-EPI)AfAm (>60 ml/min/1.73 sqM) Est GFR (CKD-EPI)NonAf (>60 ml/min/1.73 sqM) Glucose (74-99) mg/dL Calcium (8.4-10.2) mg/dL Total Bilirubin (0.2-1.3) mg/dL AST (14-36) U/L ALT (4-34) U/L Alkaline Phosphatase (38-126) U/L Total Protein (6.3-8.2) g/dL Albumin (3.5-5.0) g/dL Amylase (30-110) U/L Lipase (23-300) U/L HCG, Qual Urine Color Red Urine Appearance Cloudy H (Clear) Urine pH 5.5 (5.0-8.0) Ur Specific [place] 1.034 (1.001-1.035) Urine Protein 1+ H (Negative) Urine Glucose (UA) Negative (Negative) Urine Ketones 2+ H (Negative) Urine Blood Large H (Negative) Urine Nitrite Negative (Negative) Urine Bilirubin Negative (Negative) Urine Urobilinogen 3.0 (<2.0) mg/dL Ur Leukocyte Esterase Negative (Negative) Urine RBC >182 H (0-5) /hpf Urine WBC 1 (0-5) /hpf Ur Squamous Epith Cells 1 (0-4) /hpf Urine Bacteria Rare H (None) /hpf Hyaline Casts 5 H (0-2) /lpf Urine Mucus Rare H (None) /hpf Urine Yeast (Budding) Few H (None) /hpf Influenza Type A (PCR) Not Detected (Not Detectd) Influenza Type B (PCR) Not Detected (Not Detectd) RSV (PCR) Not Detected (Not Detectd) SARS-CoV-2 (PCR) Not Detected (Not Detectd) Disposition Clinical Impression: Abdominal pain, Uterine fibroid Disposition: HOME SELF-CARE Condition: Stable Instructions (If sedation given, give patient instructions): Abdominal Pain (ED) Additional Instructions: Please follow up with your doctor. Return to the emergency department for new or worsening symptoms. Is patient prescribed a controlled substance at d/c from ED?: No Referrals: Jesenia Madison MD [Primary Care Provider] - 1-2 days
[2025-01-09] MEDS: SODIUM CHLORIDE 0.9% 1,000 ML IV ONE (23:35)
[2025-01-09 23:36] LABS: Basophils % (A) 0 %; Eosinophils % (A) 0 %; HGB 13.2 gm/dL (11.4-16.0); Lymphocytes # (A) 0.9 k/uL (1.0-4.8); Lymphocytes % (A) 9 %; MCH 27.8 pg (25.0-35.0); MCHC 33.8 g/dL (31.0-37.0); MCV 82.2 fL (80.0-100.0); Mean Platelet Volume 6.9; Monocytes # (A) 0.3 k/uL (0-1.0); Monocytes % (A) 3 %; Neutrophils # (A) 8.7 k/uL (1.3-7.7); Neutrophils % (A) 87 %; Platelet Count 254 k/uL (150-450); RBC 4.75 m/uL (3.80-5.40); RDW 13.2 % (11.5-15.5)
[2025-01-09 23:45] LABS: ALT 19 U/L (4-34); AST 23 U/L (14-36); African American GFR (CKD) >90 (>60 ml/min/1.73 sqM); Albumin 4.9 g/dL (3.5-5.0); Alkaline Phosphatase 55 U/L (38-126); Amylase 39 U/L (30-110); Anion Gap 12 mmol/L; Blood Urea Nitrogen 14 mg/dL (7-17); Calcium 10.3 mg/dL (8.4-10.2); Carbon Dioxide 21 mmol/L (22-30); Chloride 104 mmol/L (98-107); Glucose 102 mg/dL (74-99); Lipase 135 U/L (23-300); Non-African American GFR(CKD) >90 (>60 ml/min/1.73 sqM); Sodium 137 mmol/L (137-145); Total Bilirubin 0.6 mg/dL (0.2-1.3); Total Protein 7.6 g/dL (6.3-8.2)
[2025-01-10] MEDS: MORPHINE SULFATE 4 MG/ML SYRINGE IVP STA (00:31)
[2025-01-10 00:48] LABS: Appearance,Urine Cloudy (Clear); Bacteria,Urine Rare /hpf; Bilirubin,Urine Negative (Negative); Blood,Urine Large (Negative); Budding Yeast,Urine Few /hpf; Color,Urine Red; Glucose,Urine (UA) Negative (Negative); Hyaline Casts,Urine 5 /lpf (0-2); Ketones,Urine 2+ (Negative); Leukocyte Esterase,Urine Negative (Negative); Mucus,Urine Rare /hpf; Nitrite,Urine Negative (Negative); PH, Urine 5.5 (5.0-8.0); Protein,Urine 1+ (Negative); RBC,Urine >182 /hpf (0-5); Specific Gravity,Urine 1.034 (1.001-1.035); Squamous Epithelial Cell,Urine 1 /hpf (0-4); WBC,Urine 1 /hpf (0-5)
--- NOTE | 2025-01-10 01:34 | US ---
EXAM: US Pelvis Transabdominal and Transvaginal, Complete and US Duplex Arterial/Venous of the Pelvis, Complete CLINICAL HISTORY: US Reason: pain TECHNIQUE: Real-time complete transabdominal and transvaginal pelvic ultrasound with image documentation. Transvaginal imaging was used for better evaluation of the endometrium and adnexa. Real-time duplex ultrasound scan of the arterial and venous flow of the pelvis with color Doppler flow and spectral waveform analysis. COMPARISON: May 21, 2022 abdominal ultrasound FINDINGS: Uterus/cervix: The uterus measures 8.2 x 4.9 x 5.8 cm, 121 mL is anteverted. The myometrium is unremarkable. The endometrial stripe measures 1 cm. There is a 1.1 x 0.8 x 1.5 cm polyp or a loculated fibroid in the endometrial cavity. Right ovary: The right ovary measures 2.2 x 2.4 x 1.5 cm, 4.1 mL with normal Doppler blood flow. Left ovary: The left ovary measures 3.3 x 1.6 x 2 cm, 5.4 mL with normal Doppler blood flow. Free fluid: No free fluid. Bladder: Unremarkable as visualized. Wall is normal thickness for degree of distention. IMPRESSION: The endometrial stripe measures 1 cm. There is a 1.1 x 0.8 x 1.5 cm polyp or a loculated fibroid in the endometrial cavity.
[2025-01-10] MEDS: SODIUM CHLORIDE 0.9% 1,000 ML IV ONE (01:55)
[2025-01-10] MEDS: KETOROLAC 15 MG/ML 1 ML VIAL IVP STA (02:05)
[2025-01-10 03:11] LABS: Influenza A Not Detected (Not Detectd); Influenza B Not Detected (Not Detectd); RSV Not Detected (Not Detectd)
[2025-01-10 03:30] VITALS: BP 128/77; PULSE 78; RESP 16
== END 2025-01-10 03:30 | disposition home or self-care (01) ==
LOC: SUPCPDRO 22:15 → EC 22:15
DX: D25.9 Leiomyoma of uterus, unspecified (principal); Z88.0 Allergy status to penicillin; Z88.8 Allergy status to other drugs, medicaments and biological substances; Z11.52 Encounter for screening for COVID-19
CPT/HCPCS: 36415; 93005; 80053; 82150; 83690; 85025; 81001; 84703; 87636; 93975; 76830; 99284; 96361 ×2; 96374; 96375; J2270; J1885

== ENCOUNTER 2025-04-29 00:06 | Emergency (ER) | payer OTHER ==
--- NOTE | 2025-04-29 01:04 | ED ---
Abdominal Pain HPI - General Chief Complaint: Abdominal Pain Stated Complaint: Abd Pain Time Seen by Provider: 04/29/25 00:21 Source: patient, RN notes reviewed Mode of arrival: ambulatory Limitations: no limitations - History of Present Illness Initial Comments: This is a 29-year-old female who presents to the emergency department for abdominal pain. States that earlier today she noticed that she was having some trouble going to the bathroom and had cramping in her abdomen. She went to urgent care and had a urinalysis test done that was negative for infection or . She then had an x-ray done of her abdomen demonstrating a fair amount of stool present. They did give her Toradol there, however she had no improvement. When she went home she drank half of a bottle of magnesium citrate as well as 2 doses of MiraLAX but did not produce a bowel movement. She then gave herself an enema, but again was unable to produce any stool. She has since been unable to pass gas. She did have a similar issue a few months ago, however it was less severe. She did try to follow-up with GI for colonoscopy, however it could not be completed due to too much stool burden being present. The pain is more prominent on the left-hand side. When the pain is present it makes her nauseous, but states that she is not nauseous at rest. Denies any vomiting. She does also note that she started Wegovy about 6 months ago. She is not on a regular stool regimen. MD Complaint: abdominal pain - Related Data Home Medications Medication Instructions Recorded Confirmed Vit No.180/Iron/Folic 1 tab PO DAILY 09/30/21 09/30/21 [ Plus Tablet] Allergies Allergy/AdvReac Type Severity Reaction Status Date / Time No Known Allergies Allergy Verified 04/29/25 00:15 Review of Systems ROS Statement: Those systems with pertinent positive or pertinent negative responses have been documented in the HPI. ROS Other: All systems not noted in ROS Statement are negative. Past Medical History Additional Past Medical History / Comment(s): endometriosis History of Any Multi-Drug Resistant Organisms: None Reported Past Surgical History: Appendectomy, Section, Ear Surgery, [place]ons[place] ctomy Additional Past Surgical History / Comment(s): ear tubes, may 2024, lap endometrial X2, D and C Past Psychological History: Bipolar Smoking Status: Never smoker Past Alcohol Use History: None Reported Past Drug Use History: None Reported General Exam Limitations: no limitations General appearance: alert, in no apparent distress Head exam: Present: atraumatic, normocephalic, normal inspection Respiratory exam: Present: normal lung sounds bilaterally. Absent: respiratory distress, wheezes, rales, rhonchi, stridor Cardiovascular Exam: Present: regular rate, normal rhythm GI/Abdominal exam: Present: soft, tenderness (Left mid to lower abdomen). Absent: distended Neurological exam: Present: alert, oriented X3, CN II-XII intact Psychiatric exam: Present: normal affect, normal mood Skin exam: Present: warm, dry, intact, normal color. Absent: rash Course Vital Signs 04/29/25 04/29/25 04/29/25 00:15 03:35 05:41 Temperature 97.5 F L 98.2 F Pulse Rate 94 90 91 Respiratory 18 17 18 Rate Blood Pressure 117/82 118/68 101/65 O2 Sat by Pulse 99 100 100 Oximetry Medical Decision Making - Medical Decision Making This is a 29 year old female who presents to the emergency department for abd ominal pain. Was pt. sent in by a medical professional or institution? @ -No Did you speak to anyone other than the patient for history? @ -No Did you review nursing and triage notes? @ -Yes, and I agree, it is accurate with regards to the patient's symptoms. Were old charts reviewed? @ -Abdominal x-ray from [facility] obtained on 04/28 revealing a moderate stool burden with nonobstructive gas pattern. Differential Diagnosis? @ -Differential Abdominal Pain Women: Appendicitis, Cholecystitis, diverticulosis, ischemic bowel, pancreatitis, hepatitis, UTI, gastroenteritis, AAA, incarcerated hernia, bowel obstruction, constipation, inflammatory bowel, hepatitis, peptic ulcer disease, splenic infarction, perforated viscus, vulvitis, ovarian torsion, PID, kidney stone, placenta abruption, this is not meant to be an all-inclusive list EKG interpreted by me (3pts min.)? @ -Not obtained X-rays interpreted by me (1pt min.)? @ -Not obtained CT interpreted by me (1pt min.)? @ -CT scan of the abdomen and pelvis obtained. My interpretation identifies large overall stool burden. U/S interpreted by me (1pt. min.)? @ -Not obtained What testing was considered but not performed? (CT, X-rays, U/S, labs)? Why? @ -None What meds were considered but not given? Why? @ -None Did you discuss the management of the patient with other professionals? @ -No Did you reconcile home meds? @ -No Was smoking cessation discussed for >3mins.? @ -No Was critical care preformed (if so, how long)? @ -No Were there social determinants of health that impacted care today? How? (Homelessness, low income, unemployed, alcoholism, drug addiction, transportation, low edu. Level, literacy, decrease access to med. care, retirement, rehab)? @ -No Was there de-escalation of care discussed even if they declined? (Discuss DNR or withdrawal of care, Hospice)? @ -No What co-morbidities impacted this encounter? (DM, HTN, Smoking, COPD, CAD, Cancer, CVA, Hep., AIDS, mental health diagnosis, sleep apnea, morbid obesity)? @ -Endometriosis Was patient admitted / discharged? @ -Discharged. Lab work unremarkable. CT scan of the abdomen and pelvis obtained demonstrating large overall stool burden with concerns for stercoral colitis. Findings reviewed with the patient. Advised that this is likely all related to the Wegovy. Advised that if she is going to continue that she needs to be on a regular stool regimen daily. We discussed having her go home with something like GoLytely versus an enema. Patient requests to do an enema here given that she was unsuccessful at home. Milk molasses enema administered. She only produced very small hard bowel movements. It does appear that the large stool burden is backed up into the sigmoid colon as opposed to being just in the rectum which is potentially part of the reason for this. She was sent home with the GoLytely solution to see if that will help clear her out. Advised she begin a daily stool regimen with something like MiraLAX especially if she continues on the Wegovy. Patient discharged home in stable condition and advised to have close follow-up with her PCP. Case discussed with ED attending, Dr. Thomas. Return precautions reviewed in depth, the patient is instructed to return to the emergency department with any new, worsening, or concerning symptoms. Patient verbalized understanding. Undiagnosed new problem with uncertain prognosis? @ -None Drug Therapy requiring intensive monitoring for toxicity (Heparin, Nitro, Insulin, Cardizem)? @ -None Were any procedures done? @ -None Diagnosis/symptom? @ -Stool impaction, constipation Acute, or Chronic, or Acute on Chronic? @ -Acute Uncomplicated (without systemic symptoms) or Complicated (systemic symptoms)? @ -Uncomplicated Side effects of treatment? @ -None Exacerbation, Progression, or Severe Exacerbation] @ -Not applicable Poses a threat to life or bodily function? @ -No - Lab Data Result diagrams: 04/29/25 01:00 04/29/25 01:00 Lab Results 04/29/25 04/29/25 04/29/25 Range/Units 01:00 01:00 01:00 WBC 6.65 (4.50-10.00) 10*3/uL RBC 4.26 (4.10-5.20) 10*6/uL Hgb 12.4 (12.0-15.0) g/dL Hct 35.9 L (37.2-46.3) % MCV 84.3 (80.0-97.0) fL MCH 29.1 (27.0-32.0) pg MCHC 34.5 (32.0-37.0) g/dL Plt Count 255 (140-440) 10*3/uL MPV 9.6 (9.5-12.2) fL Immature Gran % (Auto) 0.2 % Neutrophils % 63.6 % Lymphocytes % 26.6 % Monocytes % 7.1 % Eosinophils % 1.7 % Basophils % 0.8 % Immature Gran # 0.01 (0.00-0.04) 10*3/uL Neutrophils # 4.24 (1.80-7.70) 10*3/uL Lymphocytes # 1.77 (0.90-5.00) 10*3/uL Monocytes # 0.47 (0.20-1.00) 10*3/uL Eosinophils # 0.11 (0.04-0.35) 10*3/uL Basophils # 0.05 (0.00-0.10) 10*3/uL Sodium 140 (137-145) mmol/L Potassium 4.2 (3.5-5.1) mmol/L Chloride 106 (98-107) mmol/L Carbon Dioxide 22 (22-30) mmol/L Anion Gap 12 mmol/L BUN 11 (7-17) mg/dL Creatinine 0.78 (0.52-1.04) mg/dL Est GFR (CKD-EPI)AfAm >90 (>60 ml/min/1.73 sqM) Est GFR (CKD-EPI)NonAf >90 (>60 ml/min/1.73 sqM) Glucose 89 (74-99) mg/dL Plasma Lactic Acid Nabil 0.7 (0.7-2.0) mmol/L Calcium 9.8 (8.4-10.2) mg/dL Magnesium 2.3 (1.6-2.3) mg/dL Total Bilirubin 0.5 (0.2-1.3) mg/dL AST 22 (14-36) U/L ALT 15 (4-34) U/L Alkaline Phosphatase 46 (38-126) U/L C-Reactive Protein <0.5 (<1.0) mg/dL Total Protein 7.4 (6.3-8.2) g/dL Albumin 4.7 (3.5-5.0) g/dL Amylase 34 (30-110) U/L Lipase 108 (23-300) U/L HCG, Qual Not Detected - Radiology Data Radiology results: report reviewed, image reviewed Disposition Clinical Impression: Constipation, Fecal impaction Disposition: HOME SELF-CARE Instructions (If sedation given, give patient instructions): Constipation (ED), High Fiber Diet (ED), Fecal Impaction (ED) Additional Instructions: Return to the emergency department with any new, worsening, or concerning symptoms. Begin a daily stool regimen with something like MiraLAX. Try to also increase the fluid and fiber in your diet. If you continue the Wegovy, the constipation will persist and make it much harder for you to go on a regular basis. Follow up with your primary care provider in 1-2 days. Is patient prescribed a controlled substance at d/c from ED?: No Referrals: Jeesnia Madison MD [Primary Care Provider] - 1-2 days
[2025-04-29] MEDS: PANTOPRAZOLE 40 MG/10 ML VIAL IVP STA (01:10)
[2025-04-29] MEDS: SODIUM CHLORIDE 0.9% 1,000 ML IV ONE (01:10)
[2025-04-29] MEDS: METOCLOPRAMIDE 5 MG/ML 2 ML VIAL IVP STA (01:12)
[2025-04-29] MEDS: KETOROLAC 15 MG/ML 1 ML VIAL IVP STA ×2 (01:16→03:33)
[2025-04-29 01:28] LABS: Basophils # (A) 0.05 10*3/uL (0.00-0.10); Basophils % (A) 0.8 %; Eosinophils # (A) 0.11 10*3/uL (0.04-0.35); Eosinophils % (A) 1.7 %; HCT 35.9 % (37.2-46.3); HGB 12.4 g/dL (12.0-15.0); Lymphocytes # (A) 1.77 10*3/uL (0.90-5.00); Lymphocytes % (A) 26.6 %; MCH 29.1 pg (27.0-32.0); MCHC 34.5 g/dL (32.0-37.0); MCV 84.3 fL (80.0-97.0); Monocytes # (A) 0.47 10*3/uL (0.20-1.00); Monocytes % (A) 7.1 %; Neutrophils # (A) 4.24 10*3/uL (1.80-7.70); Neutrophils % (A) 63.6 %; Platelet Count 255 10*3/uL (140-440); RBC 4.26 10*6/uL (4.10-5.20); RDW 12.4 % (11.5-14.5); WBC 6.65 10*3/uL (4.50-10.00)
[2025-04-29 01:40] LABS: HCG,Qualitative Serum Not Detected
[2025-04-29 01:51] LABS: ALT 15 U/L (4-34); AST 22 U/L (14-36); African American GFR (CKD) >90 (>60 ml/min/1.73 sqM); Albumin 4.7 g/dL (3.5-5.0); Alkaline Phosphatase 46 U/L (38-126); Amylase 34 U/L (30-110); Anion Gap 12 mmol/L; Blood Urea Nitrogen 11 mg/dL (7-17); Calcium 9.8 mg/dL (8.4-10.2); Carbon Dioxide 22 mmol/L (22-30); Chloride 106 mmol/L (98-107); Glucose 89 mg/dL (74-99); Lipase 108 U/L (23-300); Magnesium 2.3 mg/dL (1.6-2.3); Non-African American GFR(CKD) >90 (>60 ml/min/1.73 sqM); Potassium 4.2 mmol/L (3.5-5.1); Sodium 140 mmol/L (137-145); Total Protein 7.4 g/dL (6.3-8.2)
[2025-04-29] MEDS: SIMETHICONE 80 MG CHEWABLE PO STA (02:07)
[2025-04-29] MEDS: MORPHINE SULFATE 4 MG/ML SYRINGE IVP STA (03:34)
--- NOTE | 2025-04-29 04:37 | CT ---
EXAM: CT Abdomen and Pelvis With Intravenous Contrast CLINICAL HISTORY: ITS.REASON CT Reason: Left sided abdominal pain TECHNIQUE: Axial computed tomography images of the abdomen and pelvis with intravenous contrast. CTDI is 20 mGy and DLP is 965.9 mGy-cm. This CT exam was performed using one or more of the following dose reduction techniques: automated exposure control, adjustment of the mA and/or kV according to patient size, and/or use of iterative reconstruction technique. COMPARISON: No relevant prior studies available. FINDINGS: ABDOMEN: Liver: Unremarkable. Gallbladder and bile ducts: Unremarkable. Pancreas: Unremarkable. Spleen: Unremarkable. Adrenals: Unremarkable. Kidneys and ureters: Unremarkable. No obstructing stones. No hydronephrosis. Stomach and bowel: Nodule impacted stool within the sigmoid colon measuring with stercoral colitis. Upstream liquid stool. No perforation or abscess. PELVIS: Appendix: No findings to suggest acute appendicitis. Bladder: Unremarkable. Reproductive: Unremarkable as visualized. ABDOMEN and PELVIS: Intraperitoneal space: Unremarkable. No free air. No significant fluid collection. Bones/joints: No acute fracture. Soft tissues: Unremarkable. Vasculature: Unremarkable. Lymph nodes: Unremarkable. IMPRESSION: Nodule impacted stool within the sigmoid colon measuring with stercoral colitis. Upstream liquid stool. No perforation or abscess.
[2025-04-29 05:46] VITALS: BP 101/65; PULSE 91; RESP 18; TEMP 98.2
[2025-04-29] MEDS: PEG 3350 (236 GM/BTL) + LYTES 4,000 ML BOTTLE PO ONE (05:46)
== END 2025-04-29 06:43 | disposition home or self-care (01) ==
LOC: EC 00:06
DX: K59.00 Constipation, unspecified (principal); N80.9 Endometriosis, unspecified
CPT/HCPCS: 36415; 80053; 82150; 83605; 83690; 83735; 85025; 86140; 84703; 74177; 99285; 96374; 96375; 96361; J2270; J2765; J1885; Q9967; J2470